=== PATIENT | male | born 1995 | race Caucasian/White ===

== ENCOUNTER 2020-04-05 13:59 | Emergency (ER) | payer OTHER ==
[~2020-04-05] VITALS: Ht 182.9 cm; Wt 84.1 kg
[2020-04-05 14:04] VITALS: TEMP 98.4
[2020-04-05 16:21] VITALS: BP 140/80; PULSE 88
== END 2020-04-05 16:22 | disposition home or self-care (01) ==
LOC: COL.ER 13:59
DX: S06.0X9A Concussion with loss of consciousness of unspecified duration, initial encounter (principal); S60.221A Contusion of right hand, initial encounter; R40.2412 Glasgow coma scale score 13-15, at arrival to emergency department; Y04.2XXA Assault by strike against or bumped into by another person, initial encounter; Y92.009 Unspecified place in unspecified non-institutional (private) residence as the place of occurrence of the external cause